=== PATIENT | female | born 2000 | race Caucasian/White ===

== ENCOUNTER → 2023-06-26 | Outpatient (CLI) | payer OTHER | LOC: COL.RAD 10:13 | DX: R76.11 Nonspecific reaction to tuberculin skin test without active tuberculosis (principal) ==

== ENCOUNTER → 2024-01-31 | Outpatient (CLI) | payer BC ==
[~2024-01-31] MED LIST: Iohexol 300 - 100 ML VIAL IV ONE; NS 100 ML IV SCH
== END ==
LOC: COL.RAD 14:24
DX: R42 Dizziness and giddiness (principal)
CPT/HCPCS: Q9967